=== PATIENT | male | born 1985 | race Two or more races ===

== ENCOUNTER 2019-02-06 03:34 | Emergency (ER) | payer BC ==
[~2019-02-06] VITALS: Ht 177.8 cm; Wt 124.7 kg
[2019-02-06] MEDS ORDERED: PERCOCET 5-3251 EACH PO (16:21)
== END 2019-02-06 16:32 | disposition home or self-care (01) ==
LOC: ER 03:34
DX: N20.1 Calculus of ureter (principal); R10.32 Left lower quadrant pain